=== PATIENT | male | born 1990 | race Caucasian/White ===

== ENCOUNTER 2020-05-04 01:04 | Emergency (ER) | payer BC, SELFPAY ==
--- NOTE | ~2020-05-04 | CT_ITS ---
EXAMINATION: CT abdomen pelvis w con DATE: 05/04/2020 02:07 INDICATION: Right lower quadrant abdominal pain. TECHNIQUE: Computed tomography (CT) of the abdomen and pelvis was performed with 100 mL Omnipaque 350 intravenous contrast. Automated exposure control and iterative reconstruction technique were employe d. The dose-length product was 481.80 mGy-cm. COMPARISON: None. FINDINGS: The visualized portions of the lung bases are clear without pneumonia or pleural effusion. The heart size is normal. No pericardial effusion. The liver, gallbladder, spleen, pancreas, adrenal glands, and kidneys are normal. There are no dilated loops of bowel. The appendix is normal. There ar e no pathologically enlarged lymph nodes. There is no free intraperitoneal fluid. There is mild lumba r spondylosis. IMPRESSION: 1. No specific etiology for the patient's symptoms. Reviewed, dictated and finalized at location A.
[2020-05-04 01:09] VITALS: BP 112/81; PULSE 79; RESP 16; TEMP 36.6; O2SAT 100
[2020-05-04] MEDS: SODIUM CHLORIDE 0.9% IV 2,000 ML 999 ML IV CONT (01:28)
[2020-05-04] MEDS: ONDANSETRON INJ 4 MG/2 ML VIAL IV PUSH (01:28)
[2020-05-04 01:31] LABS: Basophils Percent Auto 0.3 % (0.2-1.2); Eosinophils Percent Auto 0.2 % (0-4.4); Hematocrit 45.9 % (42.0-52.0); Hemoglobin 16.9 g/dL (14.0-18.0); Immature Granulocyte Absolute 0.05 K/mm3 (0.00-0.031); Immature Granulocyte Percent A 0.4 % (0-0.5); Lymphocytes Absolute Auto 2.62 K/mm3 (0.9-3.2); Lymphocytes Percent Auto 19.8 % (18.3-44.2); Mean Corpuscular HGB Conc 36.8 g/dl (32-36); Mean Corpuscular Hemoglobin 32.8 pg (26-34); Mean Corpuscular Volume 89.1 fl (80-100); Mean Platelet Volume 9.1 fl (7.4-10.4); Monocytes Absolute Auto 0.9 K/mm3 (0.1-0.6); Monocytes Percent Auto 6.5 % (2.6-8.5); Neutrophils Absolute Auto 9.6 K/mm3 (1.3-6.7); Neutrophils Percent Auto 72.8 % (45.5-73.1); Platelet Count Result 245 k/mm3 (150-375); Red Blood Count 5.15 M/mm3 (4.6-6.20); Red Cell Distribution Width 12.6 % (11.5-14.5); White Blood Count 13.2 K/mm3 (4.5-10.0)
[2020-05-04 01:44] LABS: Alanine Aminotransferase 31 U/L (4-50); Albumin Level 4.4 g/dL (3.5-5.1); Alkaline Phosphatase 109 U/L (38-126); Anion Gap 7 mmol/L (8-16); Aspartate Amino Transferase 49 U/L (17-59); Bilirubin,Total 1.5 mg/dL (0.2-1.3); Blood Urea Nitrogen 13 mg/dL (9-20); Calcium 9.8 mg/dL (8.4-10.2); Carbon Dioxide 32 mmol/L (22-30); Chloride 101 mmol/L (98-107); Estimated CRCL calculation 93 ml/min; Estimated Glomerular Filt Rate > 60; Glucose 127 mg/dL (75-110); Lipase 55 U/L (23-300); Potassium 3.2 mmol/L (3.4-5.0); Sodium 140 mmol/L (137-145)
--- NOTE | 2020-05-04 01:51 | PC.NURSE ---
Patient states he is unable to urinate at this time.
[2020-05-04 02:40] LABS: Add Urine Microscopic? YES; Appearance Urine Clear (Clear); Bilirubin Urine Negative (Negative); Blood Urine Negative (Negative); Color Urine Yellow (Yellow); Glucose Urine UA Negative (Negative); Ketones Urine Trace mg/dL (Negative); Leukocyte Esterase Ur Negative LEU/UL (Negative); Mucus Urine Few /lpf; Nitrate Urine Negative (Negative); Protein Urine Negative (Negative); RBC Urine 0-2 /hpf (0-2); Squamous Epithelial Cell Urine Rare /hpf (Few); Urobilinogen Urine Negative mg/dL (<2.0); WBC Urine 0-3 /hpf
--- NOTE | 2020-05-04 02:45 | ED.GENADULT ---
HPI - General Adult General Chief complaint: Nausea/Vomiting/Diarrhea Stated complaint: N/V/D X1D Time Seen by Provider: 05/04/20 01:20 History of Present Illness HPI narrative: Patient is a 29-year-old gentleman who presents to emergency department chief complaint of abdominal pain nausea vomiting and diarrhea. Patient states been going on for approximately 24 hours reports that she is uncomfortable throughout his abdomen. Patient reports has had multiple episodes of vomiting reports that its not improved by anything states that he was hoping it was good to be finished today but after he ate he vomited again. The patient denies fever denies chills reports that he has pain worse in the right quadrant Related Data Allergies Allergy/AdvReac Type Severity Reaction Status Date / Time No Known Allergies Allergy Verified 05/04/20 01:13 Review of Systems Review of Systems: Narrative: A 10 system review of systems was completed on the patient and is negative except for what is stated in the HPI. Nursing and ancillary documentation was reviewed. PMFSH Comments Patient denies past medical history Social history the patient reports to occasional use of marijuana Exam Narrative: Exam Narrative: GENERAL: Well-appearing, well-nourished, and in no acute distress. HEAD: Normocephalic, atraumatic. EYES: PERRLA and EOMI. ENT: Nares clear, no rhinorrhea or epistaxis. Mucous membranes moist. NECK: Supple. CHEST: Clear to auscultation. No respiratory distress. HEART: Regular rate and rhythm. No murmur heard. Normal peripheral pulses. ABDOMEN: Soft, tender to palpation in the right lower quadrant, nondistended, normal active bowel sounds. EXTREMITIES: Normal range of motion. No edema. SKIN: Warm, dry, no rash. NEURO: No focal deficits. Alert and oriented x3. PSYCH: Normal mood and affect. Course Course Emergency Course: Patient received IV hydration in the emergency department as well as antiemetics. CT scan of the abdomen pelvis showed no evidence of acute abnormalities. Vital Signs Vital signs: Vital Signs Temperature 36.6 C 05/04/20 01:09 Pulse Rate 79 05/04/20 01:09 Respiratory Rate 16 05/04/20 01:09 Blood Pressure 112/81 05/04/20 01:09 Pulse Oximetry 100 05/04/20 01:09 Temperature 36.6 C 05/04/20 01:09 Pulse Rate 79 05/04/20 01:09 Respiratory Rate 16 05/04/20 01:09 Blood Pressure 112/81 05/04/20 01:09 Pulse Oximetry 100 05/04/20 01:09 Medical Decision Making Vital Signs Vital Signs: Vital Signs Temperature 36.6 C 05/04/20 01:09 Pulse Rate 79 05/04/20 01:09 Respiratory Rate 16 05/04/20 01:09 Blood Pressure 112/81 05/04/20 01:09 Pulse Oximetry 100 05/04/20 01:09 Temperature 36.6 C 05/04/20 01:09 Pulse Rate 79 05/04/20 01:09 Respiratory Rate 16 05/04/20 01:09 Blood Pressure 112/81 05/04/20 01:09 Pulse Oximetry 100 05/04/20 01:09 Lab Data Result diagrams: 05/04/20 01:27 05/04/20 01:27 Labs: Lab Results 05/04/20 05/04/20 05/04/20 Range/Units 01:27 01:27 02:31 WBC 13.2 H (4.5-10.0) K/mm3 RBC 5.15 (4.6-6.20) M/mm3 Hgb 16.9 (14.0-18.0) g/dL Hct 45.9 (42.0-52.0) % MCV 89.1 (80-100) fl MCH 32.8 (26-34) pg MCHC 36.8 H (32-36) g/dl RDW 12.6 (11.5-14.5) % Plt Count 245 (150-375) k/mm3 MPV 9.1 (7.4-10.4) fl Immature Gran % (Auto) 0.4 (0-0.5) % Neut % (Auto) 72.8 (45.5-73.1) % Lymph % (Auto) 19.8 (18.3-44.2) % Hettinger % (Auto) 6.5 (2.6-8.5) % Eos % (Auto) 0.2 (0-4.4) % Baso % (Auto) 0.3 (0.2-1.2) % Lymph # (Auto) 2.62 (0.9-3.2) K/mm3 Hettinger # (Auto) 0.9 H (0.1-0.6) K/mm3 Eos # (Auto) 0.0 (0-0.3) K/mm3 Baso # (Auto) 0.0 (0.0-0.1) K/mm3 Abs Immat Gran (auto) 0.05 H (0.00-0.031) K/mm3 Absolute Neuts (auto) 9.6 H (1.3-6.7) K/mm3 Absolute Nucleated RBC 0.0 (0.0-0.012) K/mm3 Nucleated RBC % 0.0 (0.0-0.
[2020-05-04 02:47] LABS: Specific Grav Ur > 1.060 (1.001-1.035)
[2020-05-04 03:09] VITALS: BP 142/76; PULSE 97; RESP 18; O2SAT 97
== END 2020-05-04 03:12 | disposition home or self-care (01) ==
PROVIDERS: Emergency Provider Emergency Medicine
DX: K52.9 Noninfective gastroenteritis and colitis, unspecified (principal)
CPT/HCPCS: 36415; 74177; 80053; 81001; 83690; 85025; 96361; 96374; 99284; J2405; J7030; Q9967

== ENCOUNTER 2020-09-15 11:18 | Emergency (ER) | payer BC, SELFPAY ==
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
[2020-09-15 11:25] VITALS: BP 119/66; PULSE 60; RESP 18; TEMP 36.7; O2SAT 99
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
== END 2020-09-15 12:20 | disposition home or self-care (01) ==
PROVIDERS: Emergency Provider Nurse Practitioner Family
DX: S16.1XXA Strain of muscle, fascia and tendon at neck level, initial encounter (principal); V43.52XA Car driver injured in collision with other type car in traffic accident, initial encounter
CPT/HCPCS: 71101; 72050; 99214; G0463